=== PATIENT | female | born 1980 | race Caucasian/White ===

== ENCOUNTER 2019-10-21 01:34 | Emergency (ER) | payer SELFPAY ==
[~2019-10-21] VITALS: Ht 167.6 cm; Wt 79.5 kg
[2019-10-21 01:37] VITALS: BP 98/69
== END 2019-10-21 03:02 | disposition left against medical advice (07) ==
LOC: EMS 01:35
DX: R50.9 Fever, unspecified (principal); Z53.21 Procedure and treatment not carried out due to patient leaving prior to being seen by health care provider